=== PATIENT | male | born 1970 | race African-American/Black ===

== ENCOUNTER 2021-05-20 21:30 | Inpatient (IN) | payer MEDICAID ==
[~2021-05-20] VITALS: Ht 190.5 cm; Wt 86.2 kg
[2021-05-20] MEDS ORDERED: INSULIN R (22:07)
[2021-05-21] MEDS ORDERED: VANCOMYCIN 1 G PREMIX 200 ML IV ONE (01:00)
[2021-05-21] MEDS ORDERED: PIPERACILLIN/TAZ 3.375G PREMIX 50 ML IV ONE (01:00)
[2021-05-21] MEDS ORDERED: SODIUM CHLORIDE 0.9% 1,000 ML IV ONE (01:00)
[2021-05-21] MEDS ORDERED: KETOROLAC 30MG/ML VIAL IV ONE (01:45)
[2021-05-21 01:58] LABS: CLARITY URINE CLEAR (CLEAR); COLOR URINE YELLOW (YELLOW); KETONES URINE TRACE (NEGATIVE); LEUKOCYTE ESTERASE URINE NEGATIVE (NEGATIVE); NITRITE URINE NEGATIVE (NEGATIVE); OCCULT BLOOD URINE NEGATIVE (NEGATIVE); PH URINE 5.5 (4.5-8.0); PROTEIN URINE NEGATIVE (NEGATIVE)
[2021-05-21 02:02] LABS: BASOPHILS % 2.4 % (0.0-2.0); EOSINOPHILS % 1.4 % (0.0-5.0); HEMATOCRIT. 33.4 % (42.0-52.0); HEMOGLOBIN. 10.4 g/dL (14.0-18.0); LYMPHOCYTES % 31.5 % (20.0-50.0); MEAN CORPUSCULAR HEMOGLOBIN 22.1 pg (28.0-32.0); MEAN PLATELET VOLUME 9.7 fl (7.4-10.4); MONOCYTES % 10.4 % (2.0-8.0); NEUTROPHILS % 54.3 % (40.0-76.0); PLATELET 190 x1000/uL (130-400); RED CELL DISTRIBUTION WIDTH 20.1 % (11.6-14.6)
[2021-05-21 02:09] LABS: CHLORIDE 100 mEq/L (98-107)
[2021-05-21 02:10] LABS: ETHANOL BLOOD < 10 mg/dL
[2021-05-21 02:12] LABS: *AMPHETAMINES SCREEN URINE NEGATIVE (NEGATIVE); *BARBITURATES SCREEN URINE NEGATIVE (NEGATIVE); *BENZODIAZEPINES SCREEN URINE NEGATIVE (NEGATIVE); *COCAINE SCREEN URINE NEGATIVE (NEGATIVE); CANNABINOID URINE SCREEN NEGATIVE (NEGATIVE)
[2021-05-21 02:13] LABS: METHADONE URINE SCREEN NEGATIVE (NEGATIVE); OPIATES URINE SCREEN NEGATIVE (NEGATIVE); PHENCYCLIDINE URINE SCREEN NEGATIVE (NEGATIVE)
[2021-05-21 02:17] LABS: BETA HYDROXYBUTYRATE 0.5 mMol/L (0.0-0.3)
[2021-05-21] MEDS ORDERED: INSULIN LISPRO 100 UNITS/ML SUBCUT NR (02:45)
[2021-05-21] MEDS ORDERED: ACETAMINOPHEN 500MG TABLET PO NR (03:30)
[2021-05-21] MEDS ORDERED: MORPHINE SULFATE 4 MG/ML CPJ (NOT FOR IM USE) IV ONE (06:00)
[2021-05-21] MEDS ORDERED: IPRATROPIUM/ALBUTEROL 0.5-3(2.5)MG/3ML NEB HHN PRN (12:00)
[2021-05-21] MEDS ORDERED: ONDANSETRON HCL 4MG/2ML INJ IV PRN (12:00)
[2021-05-21] MEDS ORDERED: DIPHENHYDRAMINE 50MG/ML VIAL IV PRN (12:00)
[2021-05-21] MEDS ORDERED: ACETAMINOPHEN 325MG TABLET PO PRN (12:00)
[2021-05-21] MEDS ORDERED: CLONIDINE 0.1MG TABLET PO PRN (12:00)
[2021-05-21] MEDS ORDERED: PIPERACILLIN/TAZOBACTAM 3.375 G in DEXTROSE 5% WATER 50 ML IV SCH (12:00)
[2021-05-21] MEDS: MORPHINE SULFATE 2 MG/ML CPJ (NOT FOR IM USE) IV PRN ×3 (12:36→22:12)
[2021-05-21] MEDS ORDERED: DEXTROSE 50% WATER 50ML SYRINGE IV PRN (13:00)
[2021-05-21] MEDS: BLOOD SUGAR DIAGNOSTIC STRIP TEST SCH ×3 (13:16→21:09)
[2021-05-21] MEDS: INSULIN LISPRO 100 UNITS/ML SUBCUT SCH ×3 (13:39→21:26)
[2021-05-21] MEDS: VANCOMYCIN 1500MG in DEXTROSE 5% WATER 250ML IV SCH ×2 (14:10→17:55)
[2021-05-21 16:30] VITALS: BP 182/94
[2021-05-21 16:31] VITALS: BP 182/94
[2021-05-21] MEDS ORDERED: FUROSEMIDE 40MG/4ML VIAL IVP SCH (16:45)
[2021-05-21 20:27] VITALS: BP 154/85
[2021-05-21] MEDS ORDERED: VANCOMYCIN 1250MG in DEXTROSE 5% WATER 250ML IV SCH (22:00)
[2021-05-21] MEDS: VANCOMYCIN 1250MG in DEXTROSE 5% WATER 250ML IV SCH (22:11)
[2021-05-22 00:04] VITALS: BP 127/89
[2021-05-22] MEDS: PIPERACILLIN/TAZOBACTAM 3.375G in DEXT 5% WATER 50ML IV SCH ×4 (00:09→21:18)
[2021-05-22 04:00] VITALS: BP 132/85
[2021-05-22] MEDS: MORPHINE SULFATE 2 MG/ML CPJ (NOT FOR IM USE) IV PRN ×4 (04:01→21:18)
[2021-05-22] MEDS: VANCOMYCIN 1250MG in DEXTROSE 5% WATER 250ML IV SCH ×2 (06:34→13:12)
[2021-05-22] MEDS: BLOOD SUGAR DIAGNOSTIC STRIP TEST SCH ×4 (06:37→20:44)
[2021-05-22] MEDS: INSULIN LISPRO 100 UNITS/ML SUBCUT SCH ×4 (06:59→21:20)
[2021-05-22 08:00] VITALS: BP 151/97
[2021-05-22 09:16] LABS: BASOPHILS % 0.7 % (0.0-2.0); EOSINOPHILS % 1.3 % (0.0-5.0); HEMATOCRIT. 31.5 % (42.0-52.0); HEMOGLOBIN. 9.6 g/dL (14.0-18.0); LYMPHOCYTES % 24.7 % (20.0-50.0); MEAN CORPUSCULAR HEMOGLOBIN 21.9 pg (28.0-32.0); MEAN CORPUSCULAR VOLUME 71.8 fL (80.0-94.0); MONOCYTES % 11.3 % (2.0-8.0); PLATELET 152 x1000/uL (130-400); RED BLOOD CELL COUNT 4.39 mill/uL (4.7-6.1); RED CELL DISTRIBUTION WIDTH 19.9 % (11.6-14.6)
[2021-05-22 09:25] LABS: CHLORIDE 104 mEq/L (98-107)
[2021-05-22 09:36] LABS: LDL CHOLESTEROL 41 mg/dL (5-100)
[2021-05-22 09:39] LABS: HDL CHOLESTEROL 82 mg/dL (40-59)
[2021-05-22 12:00] VITALS: BP 146/90
[2021-05-22 15:52] LABS: TOTAL IRON BINDING CAPACITY 154 ug/dL (250-450)
[2021-05-22 15:59] LABS: FERRITIN 1265 ng/mL (22-322)
[2021-05-22 16:00] VITALS: BP 142/83
[2021-05-22 16:01] LABS: FOLIC ACID (FOLATE) SERUM >20 ng/mL ng/mL (>5.38)
[2021-05-22 16:10] LABS: HEPATITIS B SURFACE ANTIGEN NEGATIVE
[2021-05-22 16:14] LABS: VITAMIN B12 SERUM 409 pg/mL (211-911)
[2021-05-22] MEDS: METFORMIN HCL 500MG TABLET PO SCH (17:21)
[2021-05-22 20:00] VITALS: BP 141/97
[2021-05-22] MEDS: VANCOMYCIN 750 MG PREMIX 150 ML IV SCH (21:18)
[2021-05-23] VITALS: BP 129/84
[2021-05-23] MEDS: MORPHINE SULFATE 2 MG/ML CPJ (NOT FOR IM USE) IV PRN ×2 (03:09→09:59)
[2021-05-23 03:13] LABS: HEMATOCRIT. 30.4 % (42.0-52.0); HEMOGLOBIN. 9.7 g/dL (14.0-18.0); MEAN CORPUSCULAR HEMOGLOBIN 22.1 pg (28.0-32.0); MEAN PLATELET VOLUME 9.4 fl (7.4-10.4); PLATELET 173 x1000/uL (130-400); RED BLOOD CELL COUNT 4.41 mill/uL (4.7-6.1); RED CELL DISTRIBUTION WIDTH 19.8 % (11.6-14.6)
[2021-05-23 03:18] LABS: CHLORIDE 106 mEq/L (98-107)
[2021-05-23 03:27] LABS: VANCOMYCIN TROUGH 22.9 ug/mL (5.0-10.0)
[2021-05-23 04:00] VITALS: BP 152/91
[2021-05-23 04:12] LABS: ATYPICAL LYMPHOCYTES 1; PLATELET ESTIMATE NORMAL
[2021-05-23] MEDS: PIPERACILLIN/TAZOBACTAM 3.375G in DEXT 5% WATER 50ML IV SCH (05:43)
[2021-05-23] MEDS: VANCOMYCIN 750 MG PREMIX 150 ML IV SCH (05:43)
[2021-05-23] MEDS: INSULIN LISPRO 100 UNITS/ML SUBCUT SCH ×2 (07:50→12:40)
[2021-05-23 08:00] VITALS: BP 139/90
[2021-05-23] MEDS: METFORMIN HCL 500MG TABLET PO SCH (09:24)
[2021-05-23] MEDS ORDERED: LISI-186 PO ×2 (11:34→12:42)
[2021-05-23] MEDS ORDERED: HYDR12.54 MT ×2 (11:42→12:42)
[2021-05-23] MEDS ORDERED: INSU100V3 SUBCUT (11:45)
[2021-05-23 12:00] VITALS: BP 156/94
[2021-05-23] MEDS: BLOOD SUGAR DIAGNOSTIC STRIP TEST SCH (12:30)
[2021-05-23] MEDS ORDERED: NPH,100I SQ (12:42)
[2021-05-23] MEDS ORDERED: LIDO700A30 TP (12:42)
[2021-05-23] MEDS ORDERED: SULF1TAB48 MT (12:42)
[2021-05-23 13:25] VITALS: BP 156/94
== END 2021-05-23 16:05 | disposition home or self-care (01) | DRG 383 ==
LOC: EDBD 21:31 → ER 21:31 → 6WST 05-21 10:40 → ENRESERV 05-21 15:53
PROVIDERS: ADMIT Internal Medicine; ATTEND Internal Medicine
DX: L03.115 Cellulitis of right lower limb (principal); K75.9 Inflammatory liver disease, unspecified; K76.0 Fatty (change of) liver, not elsewhere classified; D50.9 Iron deficiency anemia, unspecified; I10 Essential (primary) hypertension; I87.8 Other specified disorders of veins; E11.65 Type 2 diabetes mellitus with hyperglycemia; M25.519 Pain in unspecified shoulder; L03.116 Cellulitis of left lower limb; Z83.3 Family history of diabetes mellitus; Z84.1 Family history of disorders of kidney and ureter; Z79.4 Long term (current) use of insulin; R74.01 Elevation of levels of liver transaminase levels
CPT/HCPCS: 36415; 76700; 80048; 80053; 80061; 80202; 80305; 80320; 81003; 82010; 82607; 82728; 82746; 82962; 83036; 83540; 83550; 83605; 83880; 84145; 84443; 85025; 86705; 86709; 86803; 87340; 93306; 93970; 99285; J1815; J1885; J1940; J2270; J2543; J3370; J7030; J7040; J7060; G0480

== ENCOUNTER 2022-02-19 13:31 | Emergency (ER) | payer MEDICAID ==
[~2022-02-19] VITALS: Ht 182.9 cm; Wt 82.0 kg
[~2022-02-19 13:31] MED LIST: HYDR12.54 MT; LIDO700A30 TP; LISI-186 PO; NPH,100I SQ; SULF1TAB48 MT
[2022-02-19] MEDS ORDERED: KETOROLAC 30MG/ML VIAL IV STA (13:56)
[2022-02-19] MEDS ORDERED: SODIUM CHLORIDE 0.9% 1,000 ML IV ONE (14:00)
[2022-02-19] MEDS ORDERED: DIPHENHYDRAMINE 50MG/ML VIAL IV ONE (14:00)
[2022-02-19] MEDS ORDERED: METOCLOPRAMIDE HCL 10MG/2ML VIAL IV ONE (14:00)
[2022-02-19 14:42] LABS: BASOPHILS % 2.4 % (0.0-2.0); EOSINOPHILS % 0.8 % (0.0-5.0); HEMATOCRIT. 32.3 % (42.0-52.0); HEMOGLOBIN. 10.2 g/dL (14.0-18.0); MEAN CORPUSCULAR HEMOGLOBIN 21.5 pg (28.0-32.0); MEAN CORPUSCULAR VOLUME 68.1 fL (80.0-94.0); MEAN PLATELET VOLUME 8.5 fl (7.4-10.4); MONOCYTES % 8.5 % (2.0-8.0); NEUTROPHILS % 58.3 % (40.0-76.0); PLATELET 224 x1000/uL (130-400); RED BLOOD CELL COUNT 4.75 mill/uL (4.7-6.1); RED CELL DISTRIBUTION WIDTH 16.7 % (11.6-14.6)
[2022-02-19 14:52] LABS: CHLORIDE 103 mEq/L (98-107)
[2022-02-19 15:05] VITALS: BP 162/90
[2022-02-19] MEDS ORDERED: IBUP-2028 MT (16:03)
[2022-02-19 16:09] LABS: PLATELET ESTIMATE NORMAL
== END 2022-02-19 17:45 | disposition home or self-care (01) ==
LOC: ER 13:31
DX: R51.9 Headache, unspecified (principal); E11.9 Type 2 diabetes mellitus without complications; I10 Essential (primary) hypertension; Z79.899 Other long term (current) drug therapy
CPT/HCPCS: 36415; 70450; 80053; 85025; 96361; 96374; 96375; 99284; J1200; J1885; J2765; J7030

== ENCOUNTER 2023-05-17 16:55 | Emergency (ER) | payer MEDICAID ==
[~2023-05-17] VITALS: Ht 182.9 cm; Wt 87.0 kg
[~2023-05-17 16:55] MED LIST changes: +IBUP-2028 MT
[2023-05-17 17:04] VITALS: BP 153/96; PULSE 97; RESP 18; TEMP 98.8; O2SAT 100
[2023-05-17] MEDS ORDERED: CLIN-194 MT (17:57)
[2023-05-17] MEDS ORDERED: CLINDAMYCIN HCL 150MG CAPSULE PO ONE (18:00)
== END 2023-05-17 18:31 | disposition home or self-care (01) ==
LOC: ER 16:55
DX: K12.2 Cellulitis and abscess of mouth (principal); E11.9 Type 2 diabetes mellitus without complications; I10 Essential (primary) hypertension; Z98.890 Other specified postprocedural states
CPT/HCPCS: 99283

== ENCOUNTER 2023-11-22 11:30 | Emergency (ER) | payer MEDICAID ==
[~2023-11-22] VITALS: Ht 188 cm; Wt 86.2 kg
[~2023-11-22 11:30] MED LIST changes: +CLIN-194 MT
[2023-11-22 11:41] VITALS: BP 139/92; PULSE 110; RESP 16; TEMP 98.3; O2SAT 100
[2023-11-22] MEDS ORDERED: KETOROLAC 30MG/ML VIAL IM ONE (13:00)
[2023-11-22 13:12] LABS: BASOPHILS % 0.8 % (0.0-2.0); EOSINOPHILS % 0.6 % (0.0-5.0); HEMATOCRIT. 36.3 % (42.0-52.0); HEMOGLOBIN. 11.4 g/dL (14.0-18.0); LYMPHOCYTES % 23.7 % (20.0-50.0); MEAN CORPUSCULAR HEMOGLOBIN 20.1 pg (28.0-32.0); MEAN CORPUSCULAR HGB CONC 31.5 g/dL (31.0-37.0); MEAN CORPUSCULAR VOLUME 63.7 fL (80.0-94.0); MEAN PLATELET VOLUME 9.6 fl (7.4-10.4); MONOCYTES % 6.6 % (2.0-8.0); NEUTROPHILS % 68.3 % (40.0-76.0); PLATELET 184 x1000/uL (130-400); RED CELL DISTRIBUTION WIDTH 17.3 % (11.6-14.6); WHITE BLOOD COUNT 7.8 x1000/uL (4.5-11.0)
[2023-11-22 13:13] LABS: ADD RBC MORPHOLOGY YES; DIFFERENTIAL COMMENT 1
[2023-11-22 13:35] LABS: ALANINE AMINOTRANSFERASE 53 IU/L (10-49); ALBUMIN 4.6 g/dL (3.2-4.8); ASPARTATE AMINOTRANSFERASE 23 IU/L (<34); BILIRUBIN TOTAL 1.6 mg/dL (0.1-1.0); CALCIUM 8.8 mg/dL (8.7-10.4); CARBON DIOXIDE 21 mEq/L (21-32); CHLORIDE 109 mEq/L (98-107); CREATININE 0.7 mg/dL (0.6-1.3); GLUCOSE 119 mg/dL (70-105); POTASSIUM 3.5 mEq/L (3.5-5.1); PROTEIN TOTAL 7.7 g/dL (6.0-8.3); SODIUM 138 mEq/L (136-145); UREA NITROGEN BLOOD 11 mg/dL (9-23)
[2023-11-22] MEDS ORDERED: AMOX1TAB16 MT (14:00)
[2023-11-22] MEDS ORDERED: IBUP-2030 MT (14:00)
[2023-11-22 14:48] LABS: PLATELET ESTIMATE NORMAL
[2023-11-22 14:49] LABS: HYPOCHROMASIA 1+; MICROCYTOSIS 4+
[2023-11-22 14:51] LABS: ANISOCYTOSIS 1+
== END 2023-11-22 14:10 | disposition home or self-care (01) ==
LOC: ER 11:30
DX: K04.7 Periapical abscess without sinus (principal); E11.9 Type 2 diabetes mellitus without complications; I10 Essential (primary) hypertension; Z98.890 Other specified postprocedural states
CPT/HCPCS: 36415; 80053; 85025; 99283

== ENCOUNTER 2024-06-01 14:08 | Emergency (ER) | payer MEDICAID ==
[~2024-06-01] VITALS: Ht 180.3 cm; Wt 85.0 kg
[~2024-06-01 14:08] MED LIST changes: +AMOX1TAB16 MT; +IBUP-2030 MT
[2024-06-01 14:35] VITALS: O2SAT 99
[2024-06-01 16:05] VITALS: BP 151/70; PULSE 81; RESP 18; TEMP 36.78072; O2SAT 99
== END 2024-06-01 17:06 | disposition home or self-care (01) ==
LOC: ER 14:08
DX: K04.7 Periapical abscess without sinus (principal); E11.9 Type 2 diabetes mellitus without complications; I10 Essential (primary) hypertension; Z79.899 Other long term (current) drug therapy
CPT/HCPCS: 99281; 99283

== ENCOUNTER 2024-11-20 17:53 | Emergency (ER) | payer MEDICAID ==
[~2024-11-20] VITALS: Ht 190.5 cm; Wt 95.0 kg
[2024-11-20 18:07] VITALS: O2SAT 99
[2024-11-20 18:14] VITALS: BP 178/95; PULSE 84; RESP 18; TEMP 36.8; O2SAT 97
[2024-11-20] MEDS ORDERED: NAPR-1176 MT (20:41)
[2024-11-20] MEDS ORDERED: CEPH500T MT (20:41)
[2024-11-20] MEDS ORDERED: CEPH500C2 MT (20:49)
== END 2024-11-20 20:51 | disposition home or self-care (01) ==
LOC: ER 17:53
DX: L03.211 Cellulitis of face (principal); E11.9 Type 2 diabetes mellitus without complications; I10 Essential (primary) hypertension; Z79.1 Long term (current) use of non-steroidal anti-inflammatories (NSAID); Z79.4 Long term (current) use of insulin; Z79.899 Other long term (current) drug therapy
CPT/HCPCS: 99283

== ENCOUNTER 2024-11-23 11:58 | Emergency (ER) | payer MEDICAID ==
[~2024-11-23] VITALS: Ht 190.5 cm; Wt 95.3 kg
[~2024-11-23 11:58] MED LIST changes: +CEPH500C2 MT; +NAPR-1176 MT
[2024-11-23 12:02] VITALS: O2SAT 100
[2024-11-23] MEDS ORDERED: AMOX1TAB16 MT (14:04)
[2024-11-23 14:15] VITALS: BP 155/97; PULSE 80; RESP 17; TEMP 36.7; O2SAT 100
== END 2024-11-23 14:16 ==
LOC: ER 11:58
DX: L03.211 Cellulitis of face (principal); E11.9 Type 2 diabetes mellitus without complications; I10 Essential (primary) hypertension; Z79.899 Other long term (current) drug therapy; Z90.89 Acquired absence of other organs
CPT/HCPCS: 99283

== ENCOUNTER 2025-04-05 11:26 | Emergency (ER) | payer MEDICAID ==
[~2025-04-05] VITALS: Ht 188 cm; Wt 91.0 kg
[2025-04-05 11:34] VITALS: TEMP 36.9; O2SAT 99
[2025-04-05] MEDS: KETOROLAC 15MG/ML VIAL IM ONE (12:34)
[2025-04-05] MEDS ORDERED: KETO10TA2 MT (12:37)
[2025-04-05] MEDS ORDERED: CLIN-116 MT (12:37)
[2025-04-05] MEDS ORDERED: CHLO473M13 MT (12:46)
[2025-04-05 12:54] VITALS: BP 138/92; PULSE 82; RESP 18; O2SAT 100
== END 2025-04-05 12:54 | disposition home or self-care (01) ==
LOC: ER 11:26
DX: K04.7 Periapical abscess without sinus (principal); E11.9 Type 2 diabetes mellitus without complications; I10 Essential (primary) hypertension; Z90.89 Acquired absence of other organs; Z79.899 Other long term (current) drug therapy
CPT/HCPCS: 96372; 99283; J1885; Z7610

== ENCOUNTER 2025-04-07 09:01 | Emergency (ER) | payer MEDICAID ==
[~2025-04-07] VITALS: Ht 188 cm; Wt 93.0 kg
[~2025-04-07 09:01] MED LIST changes: +CHLO473M13 MT; +CLIN-116 MT; +KETO10TA2 MT
[2025-04-07 09:08] VITALS: O2SAT 99
[2025-04-07 09:53] LABS: PLATELET 187 x1000/uL (130-400); RED BLOOD CELL COUNT 5.37 mill/uL (4.7-6.1); RED CELL DISTRIBUTION WIDTH 16.0 % (11.6-14.6)
[2025-04-07 10:05] LABS: CREATININE 0.8 mg/dL (0.6-1.3); UREA NITROGEN BLOOD 14 mg/dL (9-23)
[2025-04-07] MEDS ORDERED: IBUP-2029 MT (10:49)
[2025-04-07] MEDS: KETOROLAC 15MG/ML VIAL IV ONE (10:54)
[2025-04-07] MEDS: HYDROCODONE/ACETAMINOPHEN 5/325MG TABLET PO ONE (10:54)
[2025-04-07 10:56] VITALS: BP 173/89; PULSE 73; RESP 16; TEMP 37; O2SAT 99
[2025-04-07] MEDS ORDERED: IOHEXOL-300 100 ML BOTTLE ONE (14:06)
== END 2025-04-07 11:02 | disposition home or self-care (01) ==
LOC: ER 09:01
DX: L02.01 Cutaneous abscess of face (principal); E11.9 Type 2 diabetes mellitus without complications; I10 Essential (primary) hypertension; R22.0 Localized swelling, mass and lump, head; Z79.1 Long term (current) use of non-steroidal anti-inflammatories (NSAID); Z79.4 Long term (current) use of insulin; Z79.899 Other long term (current) drug therapy; Z90.89 Acquired absence of other organs
CPT/HCPCS: 80048; 83605; 85027; 87040; 36415; 70487; 10060; 96374; 99285; Q9967; J1885; Z7610 ×4

== ENCOUNTER 2025-07-20 09:13 | Emergency (ER) | payer MEDICAID ==
[~2025-07-20] VITALS: Ht 188 cm; Wt 94.0 kg
[~2025-07-20 09:13] MED LIST changes: +IBUP-1455 MT
[2025-07-20 09:24] VITALS: O2SAT 98
[2025-07-20] MEDS ORDERED: AMOX1TAB16 MT (10:51)
[2025-07-20] MEDS: DEXAMETHASONE 10 MG/ML VIAL IV ONE (11:40)
[2025-07-20] MEDS: KETOROLAC 30MG/ML VIAL IM ONE (11:41)
[2025-07-20 11:42] VITALS: BP 141/82; PULSE 79; RESP 16; TEMP 36.8; O2SAT 99
[2025-07-20] MEDS: ACETAMINOPHEN 500MG TABLET PO ONE (11:42)
== END 2025-07-20 11:44 | disposition home or self-care (01) ==
LOC: ER 10:21
DX: L02.91 Cutaneous abscess, unspecified (principal); I10 Essential (primary) hypertension; E11.9 Type 2 diabetes mellitus without complications; Z90.89 Acquired absence of other organs; Z79.899 Other long term (current) drug therapy; Z79.4 Long term (current) use of insulin; Z79.1 Long term (current) use of non-steroidal anti-inflammatories (NSAID)
CPT/HCPCS: 96372; 96374; 99284; J1100; J1885; Z7610